=== PATIENT | female | born 1980 | race Caucasian/White ===

== ENCOUNTER 2022-05-05 18:28 | Day surgery (SDC) | payer OTHER ==
[2022-05-05] MEDS ORDERED: hydrALAZINE 20 MG/ML VIAL SLOW IVP PRN (19:26)
[2022-05-05] MEDS ORDERED: Ondansetron PF 4 MG/2 ML Vial ONE (19:28)
[2022-05-05] MEDS ORDERED: Lactated Ringer's 1,000 ML IV SCH ×2 (19:30)
[2022-05-05] MEDS ORDERED: Ondansetron PF 4 MG/2 ML Vial IVP SCH (19:30)
[2022-05-05 19:48] LABS: #Monocytes 0.4 10x3/uL (0.0-1.1); #Neutrophils 7.8 10x3/uL (1.5-8.4); %Basophils 0.3 % (0.0-2.0); %Eosinophils 0.3 % (0.0-6.0); %Lymphocytes 13.7 % (18.0-47.0); %Monocytes 4.6 % (0.0-10.0); %Neutrophils 80.8 % (40.0-75.0); Hemoglobin 11.5 g/dL (12.0-15.5); Mean Corpuscular HGB CONC 35.2 g/dL (32.0-36.0); Mean Corpuscular Hemoglobin 30.1 pg (27.0-33.0); Mean Corpuscular Volume 85.6 fl (81.6-98.3); Mean Platelet Volume 8.4 fl (7.4-10.4); Platelet Count 336 10x3/uL (150-450); RBC Distribution Width 13.4 % (11.5-14.5); Red Blood Cell (RBC) Count 3.82 10x6/uL (3.90-5.03); White Blood Cell (WBC) Count 9.7 10x3/uL (3.5-10.5)
[2022-05-05 20:00] LABS: Anion Gap 15 mmol/L (10-20); BUN (Urea Nitrogen) 9 mg/dL (7.0-18.7); Calc. Creatinine Clearance 0 mL/min (70-130); Calcium 9.4 mg/dL (7.8-10.44); Carbon Dioxide 20 mmol/L (22-29); Chloride 104 mmol/L (98-107); Glucose 106 mg/dL (70-105); Potassium 3.6 mmol/L (3.5-5.1); Sodium 135 mmol/L (136-145)
[2022-05-05 21:01] VITALS: BMI 42.8
== END 2022-05-05 20:50 | disposition home or self-care (01) ==
LOC: CSHLD/OP 18:28
PROVIDERS: ATTEND Obstetrics & Gynecology
DX: O47.03 False labor before 37 completed weeks of gestation, third trimester (principal); O99.613 Diseases of the digestive system complicating pregnancy, third trimester; K52.9 Noninfective gastroenteritis and colitis, unspecified; O09.523 Supervision of elderly multigravida, third trimester; O34.219 Maternal care for unspecified type scar from previous cesarean delivery; O99.333 Smoking (tobacco) complicating pregnancy, third trimester; F17.210 Nicotine dependence, cigarettes, uncomplicated; O99.413 Diseases of the circulatory system complicating pregnancy, third trimester; I49.5 Sick sinus syndrome; Z3A.29 29 weeks gestation of pregnancy; Z88.0 Allergy status to penicillin; Z88.1 Allergy status to other antibiotic agents; Z88.2 Allergy status to sulfonamides; Z95.0 Presence of cardiac pacemaker
CPT/HCPCS: 80048; 85025; 96360; 96375; 99283; J2405

== ENCOUNTER 2022-06-14 20:21 | Day surgery (SDC) | payer OTHER ==
[2022-06-14 20:48] VITALS: BMI 43.0
[2022-06-14 21:38] LABS: Fetal Membranes Rupture No Membranes Rupture (No Rupture)
[2022-06-14] MEDS ORDERED: hydrALAZINE 20 MG/ML VIAL SLOW IVP PRN (21:38)
[2022-06-14] MEDS ORDERED: Lactated Ringer's 1,000 ML IV SCH (21:45)
[2022-06-14] MEDS ORDERED: Morphine 4 MG/ML VIAL SLOW IVP SCH (21:45)
[2022-06-14] MEDS ORDERED: Promethazine HCl 25 MG/ML VIAL IM SCH (21:45)
[2022-06-14] MEDS ORDERED: Morphine 4 MG/ML VIAL IM SCH (21:45)
== END 2022-06-14 22:10 | disposition home or self-care (01) ==
LOC: CSHLD/OP 20:21
PROVIDERS: ATTEND Student in an Organized Health Care Education/Training Program
DX: O47.03 False labor before 37 completed weeks of gestation, third trimester (principal); O99.413 Diseases of the circulatory system complicating pregnancy, third trimester; I49.5 Sick sinus syndrome; O09.523 Supervision of elderly multigravida, third trimester; O34.219 Maternal care for unspecified type scar from previous cesarean delivery; Z3A.35 35 weeks gestation of pregnancy; Z79.899 Other long term (current) drug therapy; Z88.0 Allergy status to penicillin; Z88.1 Allergy status to other antibiotic agents; Z88.2 Allergy status to sulfonamides; Z95.0 Presence of cardiac pacemaker
CPT/HCPCS: 84112; 99283

== ENCOUNTER 2022-07-25 11:59 | Emergency (ER) | payer OTHER ==
[2022-07-25 12:46] LABS: #Basophils 0.1 10x3/uL (0.0-0.2); #Eosinphils 0.1 10x3/uL (0.0-0.5); #Monocytes 0.4 10x3/uL (0.0-1.1); #Neutrophils 5.7 10x3/uL (1.5-8.4); %Basophils 0.7 % (0.0-2.0); %Eosinophils 1.5 % (0.0-6.0); %Lymphocytes 29.3 % (18.0-47.0); %Monocytes 4.5 % (0.0-10.0); %Neutrophils 63.7 % (40.0-75.0); Hemoglobin 13.5 g/dL (12.0-15.5); Mean Corpuscular HGB CONC 33.7 g/dL (32.0-36.0); Mean Corpuscular Hemoglobin 28.8 pg (27.0-33.0); Mean Corpuscular Volume 85.5 fl (81.6-98.3); Mean Platelet Volume 8.3 fl (7.4-10.4); Platelet Count 474 10x3/uL (150-450); RBC Distribution Width 13.4 % (11.5-14.5); Red Blood Cell (RBC) Count 4.69 10x6/uL (3.90-5.03); White Blood Cell (WBC) Count 8.9 10x3/uL (3.5-10.5)
[2022-07-25 12:54] LABS: INR-International Normal Ratio 0.9; PTT 29.1 sec (22.0-33.0); Prothrombin Time 9.8 sec (9.5-12.1)
[2022-07-25 13:00] LABS: ALT (SGPT) 15 U/L (8-55); AST (SGOT) 13 U/L (5-34); Albumin 4.3 g/dL (3.5-5.0); Alkaline Phosphatase 95 U/L (40-110); Anion Gap 17 mmol/L (10-20); BUN (Urea Nitrogen) 16 mg/dL (7.0-18.7); Bilirubin, Total 0.3 mg/dL (0.2-1.2); Calc. Creatinine Clearance 0 mL/min (70-130); Calcium 9.2 mg/dL (7.8-10.44); Carbon Dioxide 23 mmol/L (22-29); Chloride 105 mmol/L (98-107); Estimated GFR 97; Globulin 2.8 g/dL (2.4-3.5); Glucose 98 mg/dL (70-105); Potassium 4.6 mmol/L (3.5-5.1); Protein, Total 7.1 g/dL (6.0-8.3); Sodium 140 mmol/L (136-145)
[2022-07-25 13:42] LABS: SARS-CoV-2 NAA Rapid Test Not Detected (NotDetected)
[2022-07-25 14:24] LABS: Bilirubin Neg (Negative); Blood, Urine 250 (Negative); Clarity Bloody (Clear); Glucose, Urine (Dipstick) Normal (Negative); Ketone, Urine 5 mg/dL (Negative); Leukocyte 100 (Negative); Nitrite Negative (Negative); Protein, Urine (Dipstick) 500 mg/dl (Neg-Trace); Specific Gravity, Urine 1.005 (1.002-1.036); Urobilinogen Normal mg/dL (Less than 2)
[2022-07-25 14:34] LABS: RBC/HPF Greater than 50 HPF (0-3)
[2022-07-25 14:35] LABS: Bacteria/HPF 1+ HPF (None Seen); Squamous Epithelial 0-3 HPF (0-3)
== END 2022-07-25 16:44 | disposition home or self-care (01) ==
LOC: CSHERS 11:59
DX: O72.1 Other immediate postpartum hemorrhage (principal); Z87.891 Personal history of nicotine dependence
CPT/HCPCS: 76856; 80053; 81003; 81015; 85025; 85610; 85730; U0002

== ENCOUNTER 2022-11-08 14:57 | Emergency (ER) | payer OTHER | END 2022-11-08 15:52 | disposition left against medical advice (07) | LOC: CSHERS 14:57 | DX: Z53.21 Procedure and treatment not carried out due to patient leaving prior to being seen by health care provider (principal) ==